=== PATIENT | male | born 1980 | race Hispanic/Latino ===

== ENCOUNTER 2019-01-07 20:06 | Inpatient (IN) | payer OTHER ==
[~2019-01-07] VITALS: Ht 180.3 cm; Wt 95.3 kg
[2019-01-07 20:28] LABS: BASOPHILS % (AUTO) 0.2 % (0.0-5.0); EOSINOPHILS % (AUTO) 0.1 % (0.0-8.0); HEMATOCRIT 50.6 % (42-54); LYMPHOCYTES % (AUTO) 4.1 % (21.0-51.0); MEAN CORPUSCULAR HEMOGLOBIN 28.8 pg (27.0-33.0); MEAN CORPUSCULAR HGB CONC 33.7 g/dL (32.0-36.0); MEAN CORPUSCULAR VOLUME 85.5 fL (79-99); MONOCYTES % (AUTO) 9.4 % (3.0-13.0); NEUTROPHILS % (AUTO) 86.2 % (40.0-77.0); NUCLEATED RED BLOOD CELLS 0.1 % (0.0-0.19); PLATELET COUNT (AUTO) 335 K/uL (130-400); RED BLOOD CELL COUNT(AUTO) 5.92 MIL/uL (4.50-6.20); RED CELL DISTRIBUTION WIDTH 12.9 % (11.0-15.5); WHITE BLOOD COUNT (AUTO) 15.2 K/uL (4.8-10.8)
[2019-01-07] MEDS ORDERED: IOHEXOL-350 75 ML VIAL IV ONE (20:28)
[2019-01-07] MEDS ORDERED: ONDANSETRON HCL 4 MG/2 ML VIAL ONE (20:33)
[2019-01-07] MEDS ORDERED: FAMOTIDINE/PF 20 MG/2 ML VIAL IV ONE (20:33)
[2019-01-07 20:39] LABS: CREATININE 1.1 mg/dL (0.5-1.5); POTASSIUM 3.8 mmol/L (3.5-5.1)
[2019-01-07 20:43] LABS: ALBUMIN 4.3 g/dL (3.5-5.0); BILIRUBIN,DIRECT 0.1 mg/dL (0.0-0.3); BILIRUBIN,TOTAL 0.7 mg/dL (0.2-1.0); TOTAL PROTEIN, SERUM 8.3 g/dL (6.0-8.3)
[2019-01-07 22:04] LABS: APPEARANCE,URINE Clear (CLEAR); BILIRUBIN,URINE Negative (NEGATIVE); COLOR,URINE Yellow (YELLOW); GLUCOSE, URINE (UA) Negative (NEGATIVE); KETONES,URINE 15 mg/dL (NEGATIVE); LEUKOCYTE ESTERASE ,URINE Negative (NEGATIVE); NITRATE,URINE Negative (NEGATIVE); OCCULT BLOOD,URINE Trace (NEGATIVE); PROTEIN,URINE Negative (NEGATIVE); UROBILINOGEN,URINE 0.2 mg/dL (0.2-1.0)
[2019-01-07 22:12] LABS: BACTERIA,URINE Rare /HPF (None Seen); SQUAMOUS EPITHELIAL CELL,UR Few /HPF (0-2); WBC,URINE 0-1 /HPF (0-1)
[2019-01-07] MEDS ORDERED: MORPHINE SULFATE 2 MG/ML 1ML SYG ONE (22:17)
[2019-01-07] MEDS ORDERED: ONDANSETRON HCL 4 MG/2 ML VIAL IV PRN (23:00)
[2019-01-07] MEDS ORDERED: ACETAMINOPHEN EXTRA STRENGTH 500 MG TABLET ONE (23:14)
[2019-01-07] MEDS ORDERED: METOPROLOL TARTRATE 1 MG/ML 5ML VIAL IV ONE (23:14)
[2019-01-07] MEDS ORDERED: ACETAMINOPHEN 325 MG TAB PO PRN (23:45)
[2019-01-08] MEDS ORDERED: MORPHINE SULFATE 2 MG/ML 1ML SYG ONE ×4 (04:49→16:01)
[2019-01-08] MEDS: METRONIDAZOLE 500MG/100ML BAG 100 ML IV SCH ×3 (06:00→22:28)
[2019-01-08] MEDS ORDERED: FAMOTIDINE/PF 20 MG/2 ML VIAL IV ONE (08:05)
[2019-01-08] MEDS ORDERED: METRONIDAZOLE 500MG/100ML BAG 100 ML ONE ×2 (08:05→15:46)
[2019-01-08] MEDS: FAMOTIDINE/PF 20 MG/2 ML VIAL IV SCH ×2 (09:00→20:13)
--- NOTE | 2019-01-08 11:22 | NUR ---
NILA Paulie met with pt who lives with Vic [address]ain [phone]. pt is independent., works, drives, no DME or HH. Pt denies dc needs, plan is home at dc Addendum: 01/08/19 at 1123 by LIANE NUNEZ Amended: Links added.
[2019-01-08] MEDS: LEVOFLOXACIN 500 MG/D5W 100 ML 100 ML IV SCH (12:45)
[2019-01-08] MEDS ORDERED: LEVOFLOXACIN 500 MG/D5W 100 ML 100 ML ONE (12:52)
[2019-01-08] MEDS ORDERED: ONDANSETRON HCL 4 MG/2 ML VIAL ONE (16:18)
[2019-01-08 17:41] VITALS: BP 151/98
[2019-01-08] MEDS: SODIUM CHLORIDE 0.9% 1000ML 1,000 ML IV SCH ×2 (18:52→22:29)
[2019-01-08 19:50] VITALS: BP 175/108
[2019-01-08] MEDS: MORPHINE SULFATE 2 MG/ML 1ML SYG IV PRN ×2 (20:13→23:43)
[2019-01-08 23:23] VITALS: BP 156/103
[2019-01-09 03:50] VITALS: BP 145/92
[2019-01-09] MEDS: SODIUM CHLORIDE 0.9% 1000ML 1,000 ML IV SCH ×2 (04:00→15:04)
[2019-01-09] MEDS: MORPHINE SULFATE 2 MG/ML 1ML SYG IV PRN ×4 (05:05→22:10)
[2019-01-09] MEDS: METRONIDAZOLE 500MG/100ML BAG 100 ML IV SCH ×3 (05:42→21:49)
[2019-01-09 07:30] VITALS: BP 144/97
[2019-01-09] MEDS: FAMOTIDINE/PF 20 MG/2 ML VIAL IV SCH ×2 (08:24→21:14)
[2019-01-09 11:00] VITALS: BP 159/91
[2019-01-09] MEDS: LEVOFLOXACIN 500 MG/D5W 100 ML 100 ML IV SCH (12:13)
[2019-01-09] MEDS: METOPROLOL TARTRATE 1 MG/ML 5ML VIAL IV PRN (12:17)
--- NOTE | 2019-01-09 14:00 | NUR ---
MD ROUNDS PATIENT AWAKE AND ALERT. VOICES ALL NEEDS. NO COMPLAINTS OF PAIN VOICED AT THIS TIME. MEETA OSBORNE VISITED WITH PATIENT. POC DISCUSSED. NEW ORDERS RECEIVED AND CARRIED OUT. NGT DISCONTINUED, TOLERATED WELL. DIET ORDERED. PATIENT AWARE. CALL LIGHT WITHIN REACH. WILL CONTINUE TO BE OBSERVED. Addendum: 01/09/19 at 1422 by COURTNEY COREA RN RN Amended: Links added.
[2019-01-09] MEDS ORDERED: PHENOL 177 ML BOTTLE PO PRN (14:15)
[2019-01-09 16:00] VITALS: BP 154/99
[2019-01-09 17:36] LABS: HEMATOCRIT 42.8 % (42-54); MEAN CORPUSCULAR HEMOGLOBIN 28.9 pg (27.0-33.0); MEAN CORPUSCULAR HGB CONC 33.5 g/dL (32.0-36.0); MEAN CORPUSCULAR VOLUME 86.5 fL (79-99); NUCLEATED RED BLOOD CELLS 0.1 % (0.0-0.19); PLATELET COUNT (AUTO) 320 K/uL (130-400); RED BLOOD CELL COUNT(AUTO) 4.94 MIL/uL (4.50-6.20); RED CELL DISTRIBUTION WIDTH 13.1 % (11.0-15.5); WHITE BLOOD COUNT (AUTO) 5.2 K/uL (4.8-10.8)
[2019-01-09 20:00] VITALS: BP 159/92
[2019-01-09] MEDS: CLINDAMYCIN 600 MG/D5% WATER 50 ML IV SCH (21:14)
[2019-01-09 23:38] VITALS: BP 161/112
[2019-01-10] MEDS: CLINDAMYCIN 600 MG/D5% WATER 50 ML IV SCH ×3 (02:30→17:53)
[2019-01-10 04:00] VITALS: BP 150/89
[2019-01-10] MEDS: METRONIDAZOLE 500MG/100ML BAG 100 ML IV SCH ×3 (06:24→20:10)
[2019-01-10 06:31] LABS: HEMATOCRIT 42.2 % (42-54); MEAN CORPUSCULAR HEMOGLOBIN 28.6 pg (27.0-33.0); MEAN CORPUSCULAR HGB CONC 33.4 g/dL (32.0-36.0); MEAN CORPUSCULAR VOLUME 85.6 fL (79-99); PLATELET COUNT (AUTO) 340 K/uL (130-400); RED BLOOD CELL COUNT(AUTO) 4.93 MIL/uL (4.50-6.20); RED CELL DISTRIBUTION WIDTH 12.8 % (11.0-15.5); WHITE BLOOD COUNT (AUTO) 5.7 K/uL (4.8-10.8)
[2019-01-10 06:34] LABS: POTASSIUM 3.6 mmol/L (3.5-5.1)
[2019-01-10 08:00] VITALS: BP 141/90
[2019-01-10] MEDS: DICYCLOMINE HCL 20 MG TAB PO PRN ×3 (08:29→20:00)
[2019-01-10] MEDS: FAMOTIDINE/PF 20 MG/2 ML VIAL IV SCH ×2 (08:29→20:09)
[2019-01-10 12:00] VITALS: BP 141/90
[2019-01-10] MEDS: LEVOFLOXACIN 500 MG/D5W 100 ML 100 ML IV SCH (12:19)
[2019-01-10] MEDS: MORPHINE SULFATE 2 MG/ML 1ML SYG IVP PRN ×2 (12:24→20:05)
[2019-01-10] MEDS: SODIUM CHLORIDE 0.9% 1000ML 1,000 ML IV SCH (12:59)
[2019-01-10 16:00] VITALS: BP 147/93
--- NOTE | 2019-01-10 16:00 | NUR ---
ROUNDS PATIENT AWAKE AND ALERT IN BED WITH GIRLFRIEND. NO COMPLAINTS OF PAIN VOICED AT THIS TIME. VITALS STABLE. AFEBRILE. TOLERATING IVF WELL. BLOOD CULTURES REPORTED TO SANTIAGO ZALDIVAR. NEW ORDERS RECEIVED AND CARRIED OUT. PATIENT AWARE. NPO. CALL LIGHT WITHIN REACH. WILL CONTINUE TO BE OBSERVED. Addendum: 01/10/19 at 1852 by COURTNEY COREA RN RN Amended: Links added.
[2019-01-10 20:00] VITALS: BP 158/96
[2019-01-10] MEDS: NITAZOXANIDE 500 MG TAB PO SCH (20:09)
[2019-01-10 23:34] VITALS: BP 143/99
[2019-01-11] MEDS ORDERED: LORAZEPAM 2 MG/ML 1 ML VIAL IVP PRN (00:45)
[2019-01-11] MEDS ORDERED: LORAZEPAM 2 MG/ML 1 ML VIAL ONE (00:55)
[2019-01-11] MEDS: CLINDAMYCIN 600 MG/D5% WATER 50 ML IV SCH ×3 (02:57→15:58)
[2019-01-11 04:00] VITALS: BP 153/79
[2019-01-11 05:12] LABS: HEMATOCRIT 43.7 % (42-54); MEAN CORPUSCULAR HEMOGLOBIN 28.6 pg (27.0-33.0); MEAN CORPUSCULAR HGB CONC 33.5 g/dL (32.0-36.0); MEAN CORPUSCULAR VOLUME 85.1 fL (79-99); PLATELET COUNT (AUTO) 387 K/uL (130-400); RED BLOOD CELL COUNT(AUTO) 5.14 MIL/uL (4.50-6.20); RED CELL DISTRIBUTION WIDTH 12.5 % (11.0-15.5)
[2019-01-11 05:23] LABS: CREATININE 0.9 mg/dL (0.5-1.5); POTASSIUM 3.7 mmol/L (3.5-5.1)
[2019-01-11] MEDS: METRONIDAZOLE 500MG/100ML BAG 100 ML IV SCH ×3 (06:45→21:04)
[2019-01-11 08:00] VITALS: BP 156/90
[2019-01-11] MEDS: SODIUM CHLORIDE 0.9% 1000ML 1,000 ML IV SCH ×2 (08:29→09:39)
[2019-01-11] MEDS: NITAZOXANIDE 500 MG TAB PO SCH ×2 (09:37→21:00)
[2019-01-11] MEDS: FAMOTIDINE/PF 20 MG/2 ML VIAL IV SCH ×2 (09:37→21:04)
--- NOTE | 2019-01-11 10:00 | NUR ---
MEETA PARKINSON VISITED WITH PATIENT. POC DISCUSSED. NEW ORDERS RECEIVED AND CARRIED OUT. CONTINUES TO BE NPO. TOLERATING IVF WELL. NS INFUSING AT 70ML/HR. UP AD [place]. RESP EVEN AND UNLABORED, NO SOB NOTED. ON ROOM AIR. LAST BM TODAY. NO SIGNS OF DISTRESS NOTED. CALL LIGHT WITHIN REACH. WILL CONTINUE TO BE OBSERVED. Addendum: 01/11/19 at 1509 by COURTNEY COREA RN RN Amended: Links added.
[2019-01-11 11:00] VITALS: BP 148/87
[2019-01-11] MEDS: LEVOFLOXACIN 500 MG/D5W 100 ML 100 ML IV SCH (12:59)
[2019-01-11] MEDS: KETOROLAC TROMETHAMINE 30MG/ML IV PRN ×2 (15:59→22:24)
[2019-01-11 16:00] VITALS: BP 141/88
[2019-01-11 20:00] VITALS: BP 159/105
[2019-01-12] VITALS: BP 145/93
[2019-01-12] MEDS: DICYCLOMINE HCL 20 MG TAB PO PRN (02:39)
[2019-01-12 04:00] VITALS: BP 161/99
[2019-01-12] MEDS: KETOROLAC TROMETHAMINE 30MG/ML IV PRN ×2 (04:04→08:36)
[2019-01-12 06:17] LABS: HEMATOCRIT 42.7 % (42-54); MEAN CORPUSCULAR HEMOGLOBIN 28.7 pg (27.0-33.0); MEAN CORPUSCULAR HGB CONC 33.9 g/dL (32.0-36.0); MEAN CORPUSCULAR VOLUME 84.6 fL (79-99); PLATELET COUNT (AUTO) 402 K/uL (130-400); RED BLOOD CELL COUNT(AUTO) 5.05 MIL/uL (4.50-6.20); RED CELL DISTRIBUTION WIDTH 12.8 % (11.0-15.5)
[2019-01-12] MEDS: METOPROLOL TARTRATE 1 MG/ML 5ML VIAL IV PRN (06:17)
[2019-01-12] MEDS: METRONIDAZOLE 500MG/100ML BAG 100 ML IV SCH ×3 (06:17→23:00)
[2019-01-12 06:38] LABS: POTASSIUM 3.2 mmol/L (3.5-5.1)
[2019-01-12 07:30] VITALS: BP 168/98
--- NOTE | 2019-01-12 08:00 | NUR ---
PT UP NPO STATUS, DENIES ANY ABD PAIN OR NAUSEA. STATED THAT HE HAVING B,M CALL LIGHT IN REACH .
[2019-01-12] MEDS: FAMOTIDINE/PF 20 MG/2 ML VIAL IV SCH ×2 (08:38→20:56)
[2019-01-12 11:00] VITALS: BP 149/98
[2019-01-12] MEDS ORDERED: METOPROLOL TARTRATE 1 MG/ML 5ML VIAL IV PRN (14:30)
[2019-01-12] MEDS ORDERED: HYDRALAZINE HCL 20 MG/ML VIAL IM PRN (14:30)
[2019-01-12] MEDS: NITAZOXANIDE 500 MG TAB PO SCH ×2 (15:28→20:56)
[2019-01-12] MEDS: SODIUM CHLORIDE 0.9% 1000ML 1,000 ML IV SCH (15:40)
[2019-01-12 16:00] VITALS: BP 156/95
[2019-01-12] MEDS: LEVOFLOXACIN 500 MG/D5W 100 ML 100 ML IV SCH (16:57)
[2019-01-12 19:10] VITALS: BP 148/86
[2019-01-13] VITALS (7 sets, daily range): BP systolic 139–160; BP diastolic 88–97
[2019-01-13 04:32] LABS: MEAN CORPUSCULAR HEMOGLOBIN 29.6 pg (27.0-33.0); MEAN CORPUSCULAR HGB CONC 34.5 g/dL (32.0-36.0); MEAN CORPUSCULAR VOLUME 85.7 fL (79-99); PLATELET COUNT (AUTO) 409 K/uL (130-400); RED BLOOD CELL COUNT(AUTO) 4.89 MIL/uL (4.50-6.20); RED CELL DISTRIBUTION WIDTH 12.6 % (11.0-15.5); WHITE BLOOD COUNT (AUTO) 10.2 K/uL (4.8-10.8)
[2019-01-13 04:41] LABS: CREATININE 0.9 mg/dL (0.5-1.5); POTASSIUM 3.1 mmol/L (3.5-5.1)
[2019-01-13] MEDS: METRONIDAZOLE 500MG/100ML BAG 100 ML IV SCH ×3 (06:14→22:59)
[2019-01-13] MEDS ORDERED: POTASSIUM CHLORIDE 20MEQ/100ML 100 ML IV PRN (07:30)
[2019-01-13] MEDS ORDERED: POTASSIUM CHLORIDE 10% ELIXIR 20 MEQ/15 ML UDCUP PO PRN (07:30)
[2019-01-13] MEDS ORDERED: LIDOCAINE HCL-MPF 1% 2ML VIAL IVP PRN (07:30)
--- NOTE | 2019-01-13 08:00 | NUR ---
PT . DENIES ANY ABD . WILL STARTED ON FULL DIET.
[2019-01-13] MEDS: NITAZOXANIDE 500 MG TAB PO SCH ×2 (09:19→22:59)
[2019-01-13] MEDS: FAMOTIDINE/PF 20 MG/2 ML VIAL IV SCH ×2 (09:19→22:58)
[2019-01-13] MEDS: SODIUM CHLORIDE 0.9% 1000ML 1,000 ML IV SCH ×2 (09:20→23:04)
[2019-01-13] MEDS: POTASSIUM CHLORIDE 20 MEQ ERTAB PO PRN ×3 (11:29→20:04)
--- NOTE | 2019-01-13 12:00 | NUR ---
UP AMBULATION , DENIES ANY ABD PAIN
--- NOTE | 2019-01-13 13:00 | NUR ---
STARTED CL LIQ AND BENJAMÍN ANY ABD PAIN,, ENCOURAGE TO TAKE IT . SLOWLY
--- NOTE | 2019-01-13 13:30 | NUR ---
STARTED ON A FULL LIQ DIET TOLERATE THE CL LIQ DIET ,WITH NO C/O OFABD PAIN. GREGORIA AVERY
[2019-01-13] MEDS: LEVOFLOXACIN 500 MG/D5W 100 ML 100 ML IV SCH (14:28)
[2019-01-14 01:01] VITALS: BP 166/77
[2019-01-14 04:00] VITALS: BP 151/91
[2019-01-14] MEDS: METRONIDAZOLE 500MG/100ML BAG 100 ML IV SCH ×2 (05:12→14:48)
[2019-01-14] MEDS: SODIUM CHLORIDE 0.9% 1000ML 1,000 ML IV SCH (05:13)
[2019-01-14 05:25] LABS: HEMATOCRIT 42.4 % (42-54); MEAN CORPUSCULAR HEMOGLOBIN 29.4 pg (27.0-33.0); MEAN CORPUSCULAR HGB CONC 34.6 g/dL (32.0-36.0); PLATELET COUNT (AUTO) 391 K/uL (130-400); RED BLOOD CELL COUNT(AUTO) 4.99 MIL/uL (4.50-6.20); RED CELL DISTRIBUTION WIDTH 12.9 % (11.0-15.5); WHITE BLOOD COUNT (AUTO) 11.3 K/uL (4.8-10.8)
[2019-01-14 05:32] LABS: CREATININE 0.9 mg/dL (0.5-1.5); POTASSIUM 3.6 mmol/L (3.5-5.1)
[2019-01-14 08:16] VITALS: BP 154/79
[2019-01-14] MEDS: FAMOTIDINE/PF 20 MG/2 ML VIAL IV SCH (09:18)
[2019-01-14] MEDS: NITAZOXANIDE 500 MG TAB PO SCH (09:18)
[2019-01-14 11:39] VITALS: BP 124/85
[2019-01-14] MEDS: LEVOFLOXACIN 500 MG/D5W 100 ML 100 ML IV SCH (12:32)
--- NOTE | 2019-01-14 14:40 | NUR ---
INFECTION CONTROL-PT REMAINS ON CONTACT ISOLATION. PT HAS CRYPTOSPORIDIUM IN THE STOOL ([place] NOTIFIABLE CONDITION) ALREADY REPORTED TO THE HEALTH DEPT.
[2019-01-14] MEDS ORDERED: LEVO500T89 PO (15:52)
[2019-01-14] MEDS ORDERED: METR-172 PO (15:52)
[2019-01-14] MEDS ORDERED: PANT40TA PO (15:52)
--- NOTE | 2019-01-14 16:07 | NUR ---
PT OKAY TO BE D/C BY ID STATED BCX 1 OF 2 RESULT WAS A CONTAMINANT. PT CLEARED TO BE D/C
[2019-01-14 16:19] VITALS: BP 138/66
--- NOTE | 2019-01-14 17:34 | NUR ---
RDSCREEN - LOS X 7 Patient reports tolerating Soft Diet with no report of GI distress and PO intake at 75%. Patient LBM 01/13/19. Patient monitored labs: Ca 8.2, Alb 4.3. RD to continue to monitor. Please notify DOMENICO as nutritional concerns arise. Thank you. Addendum: 01/14/19 at [address] RD Amended: Links added.
--- NOTE | 2019-01-14 17:39 | NUR ---
PT D/C HOME Pt d/c home as planned, pt was ready and insisted to go home, pt with stable VS, tolerating diet well, no report of nausea or vomiting, pt d/c on abx and protonix, no PCP on file, pt given a list of PCP to follow up with, appointment made to follow up with surgeon as recommended, pt verbalized d/c instruction and walk off the unit accompanied by his spouse.
== END 2019-01-14 17:53 | disposition home or self-care (01) | DRG 872 ==
LOC: EDH 20:06 → EDHIP 20:07 → OBSVTOIN 20:07 → 4CH 01-08 16:49
PROVIDERS: ADMIT Internal Medicine; ATTEND Internal Medicine
PROC: 0D9670Z Drainage of Stomach with Drainage Device, Via Natural or Artificial Opening (ICD-10-PCS; principal; 2019-01-08)
DX: A41.9 Sepsis, unspecified organism (principal); K56.600 Partial intestinal obstruction, unspecified as to cause; A07.2 Cryptosporidiosis; E87.6 Hypokalemia; K76.0 Fatty (change of) liver, not elsewhere classified; K80.20 Calculus of gallbladder without cholecystitis without obstruction; K52.9 Noninfective gastroenteritis and colitis, unspecified; B95.8 Unspecified staphylococcus as the cause of diseases classified elsewhere
CPT/HCPCS: 36415; 74018; 74177; 80048; 80076; 81001; 82948; 83690; 85025; 85027; 87040; 87077; 87186; 87507; G0378; J1885; J1956; J2060; J2405; J3490; J7030; Q9967